=== PATIENT | male | born 2000 | race Caucasian/White ===

== ENCOUNTER 2018-11-16 18:46 | Emergency (ER) | payer SELFPAY ==
[~2018-11-16] VITALS: Ht 182.9 cm; Wt 131.8 kg
[2018-11-16 21:24] VITALS: BP 138/84
== END 2018-11-16 21:24 | disposition home or self-care (01) ==
LOC: EMS 18:47
DX: S63.502A Unspecified sprain of left wrist, initial encounter (principal); S53.402A Unspecified sprain of left elbow, initial encounter; E78.00 Pure hypercholesterolemia, unspecified; F17.210 Nicotine dependence, cigarettes, uncomplicated; Z88.0 Allergy status to penicillin; W05.1XXA Fall from non-moving nonmotorized scooter, initial encounter; Y93.89 Activity, other specified; Y92.89 Other specified places as the place of occurrence of the external cause; Y99.8 Other external cause status